=== PATIENT | male | born 1945 | race African-American/Black ===

== ENCOUNTER 2016-08-10 10:38 | Emergency (ER) | payer OTHER ==
[2016-08-10] MEDS ORDERED: DEXTROSE 50%-WATER 50 ML VIAL ONE (10:51)
[2016-08-10 10:55] VITALS: BP 0/0; PULSE 0; BMI 25.8
--- NOTE | 2016-08-10 11:13 | PDOC ---
History of Present Illness - History of Present Illness Initial Comments: 08/10/16 15:32 Patient is a 71 year old male with significant medical hx of HTN and DM, brought to the ED via EMS in asystole. The patient was last seen well at 8 AM this morning by . Between 8 AM and 10 AM there were calls coming to the house but no one answered, so the went downstairs to check up on the patient who was found unresponsive. Patient's made the call to EMS at 10: 07 AM and the patient arrived to the ED at 10:34 AM. He had received 3 rounds of epinephrine in the field. EMS reports the patient was found in asystole upon arrival. Attempted intubation in the field by EMS without success. BGM by EMS was 50, but pt arrived prior to receiving any further intervention. PMD: Ale Koo MD <Leola Ibrahim - Last Filed: 08/10/16 15:31> <Quang Munoz - Last Filed: 08/10/16 17:58> - General Stated Complaint: CARDIAC ARREST Time Seen by Provider: 08/10/16 11:02 Past History <Leola Ibrahim - Last Filed: 08/10/16 15:31> - Past Medical History Diabetes: Yes - Psycho/Social/Smoking Cessation Hx Anxiety: No Suicidal Ideation: No Smoking History: Unknown if ever smoked Have you smoked in the past 12 months: No Information on smoking cessation initiated: No <Quang Munoz - Last Filed: 08/10/16 17:58> - Past Medical History Allergies/Adverse Reactions: Allergies Allergy/AdvReac Type Severity Reaction Status Date / Time No Known Allergies Allergy Verified 08/10/16 10:46 Home Medications: Ambulatory Orders Unobtainable [Unobtainable] 08/10/16 Review of Systems - Review of Systems Comments:: 08/10/16 15:34 Unable to assess. <Leola Ibrahim - Last Filed: 08/10/16 15:31> *Physical Exam - Vital Signs Last Vital Signs Temp Pulse Resp BP Pulse Ox 0 L 0 L 0/0 0 L 08/10/16 10:46 08/10/16 10:46 08/10/16 10:46 08/10/16 10:46 - Physical Exam Comments: 08/10/16 15:34 GENERAL: unresponsive HEAD: Normocephalic, atraumatic. EYES: pupils 5mm and fixed ENT: vomitis in oral airway NECK: normal LUNGS: rhonchous breath sounds when bagged HEART:asystole, mechanical compressor in place ABDOMEN: distaneded, firm EXTREMITIES: s/p transmetatarsal amputation,m well healed NEUROLOGICAL: unrespnsove PSYCH: unable to assess SKIN: Warm, Dry, normal turgor. <Leola Ibrahim - Last Filed: 08/10/16 15:31> - Vital Signs Last Vital Signs Temp Pulse Resp BP Pulse Ox 0 L 0 L 0/0 0 L 08/10/16 10:46 08/10/16 10:46 08/10/16 10:46 08/10/16 10:46 <Quang Munoz - Last Filed: 08/10/16 17:58> Procedures - Consent Consent obtained: Unable to obtain - Intubation Time of Intubation: 10:45 Intubation Method: orotracheal Blade used: Palacio Tube Size (Fr): 8.0 Tube position @ lip (cm): 24 Tube position confirmed by: Direct visualization, CO2 detector Breath Sounds after Intubation: equal Post Intubation Xray: No (successful on 3rd attempt (direct/fiberoptic/direct)) <Quang Munoz - Last Filed: 08/10/16 17:58> Medical Decision Making - Medical Decision Making 08/10/16 11:13 71y M hxof IDDM, HTN, CKD presenting with cardiac arrest. The pt was heard walking around 8am, and there was a call to the house but no one answer, so the pts called the on his phone (he sleeps by himself downstairs) there was no answer so she went to check on him - he was found unresponsive, EMS was called at 10:07, EMS started ACLS, initial rhythm was asystole, with several cycles of epinephrine without improvement. BGM was 50. Field attempt to intubate without success. On arrival the pt was in asystelo, acls was continued without improvement from asystole. Pt was given multiple doses of D50. The pt was attempted and was susccessful after 3rd attempt using direct visualization, and color change on camnoemter. There was browish substance in airway prior to intubation that was suctioned. The pt was pronounced at 10:54. The was bedside and was notified. Pronounced at 10:54pm PMD Ale Koo [phone] - Attempted to call dr. Koo without success [facility] - will accept the patient as we do not know who is the PMD - Dr. Koo is neprhologist and states he has not seen the pt in several years. ME case the stats she will go home and see if she can find another doctor that has seen her more recently. Will notify ME if we can get another name. 08/10/16 13:04 08/10/16 17:[address] Richard Avila - states he would be willing to do the certificate pts PMD - [phone], cell [phone] ME was notified, they will decline the case and release it. CRITICAL CARE DOCUMENTATION: I spent ~35 minutes of Critical Care time, excluding separately billable procedures, involving high complexity decision making to assess, manipulate and support vital system function(s) to treat single or multiple vital organ system failure and/or to prevent further life threatening deterioration of the patient' s condition. <Quang Munoz - Last Filed: 08/10/16 17:58> *DC/Admit/Observation/Transfer - Attestations Scribe Attestion: 08/10/16 15:34 Documentation prepared by Leola Ibrahim, acting as medical lab director for Quang Munoz MD. <Leola Ibrahim - Last Filed: 08/10/16 15:31> - Discharge Dispostion Admit: No <Quang Munoz - Last Filed: 08/10/16 17:58> Diagnosis at time of Disposition: Cardiac arrest - Referrals Referrals: STAFF,NOT ON [Primary Care Provider] -
== END 2016-08-10 13:40 | disposition expired ==
LOC: JER 10:38
PROC: 5A12012 Performance of Cardiac Output, Single, Manual (ICD-10-PCS; principal; 2016-08-10)
PROC: 0BH17EZ Insertion of Endotracheal Airway into Trachea, Via Natural or Artificial Opening (ICD-10-PCS; 2016-08-10)
DX: I46.9 Cardiac arrest, cause unspecified (principal); I12.9 Hypertensive chronic kidney disease with stage 1 through stage 4 chronic kidney disease, or unspecified chronic kidney disease; E13.22 Other specified diabetes mellitus with diabetic chronic kidney disease; N18.9 Chronic kidney disease, unspecified; Z79.4 Long term (current) use of insulin; Z89.429 Acquired absence of other toe(s), unspecified side
CPT/HCPCS: 31500; 92950; 99285-25